=== PATIENT | female | born 1980 | race Caucasian/White ===

== ENCOUNTER → 2023-04-04 | Outpatient (CLI) | payer OTHER ==
[~2023-04-04] MED LIST: AMOCLA875 PO
[2023-04-04 15:42] LABS: Albumin, Blood 3.8 g/dL (3.4-5.0); Albumin/Globulin Ratio 1.1 (0.8-1.8); Bilirubin, Total 0.5 mg/dL (0.1-1.0); Bun/Creatinine Ratio 13.2 (12.0-20.0); Calcium, Blood 8.7 mg/dL (8.5-10.1); Creatinine, Blood 0.76 mg/dL (0.40-1.00); Free Thyroxine 0.87 ng/dL (0.70-1.60); Globulin, Blood 3.5 g/dL (2.2-4.0); Thyroid Stimulating Hormone 1.2 uIU/mL (0.360-4.800); Total Protein, Blood 7.3 g/dL (6.4-8.2)
== END | disposition home or self-care (01) ==
LOC: LAB 11:04 → LAB SHORT 11:04
PROVIDERS: Nurse Practitioner Family
DX: E78.5 Hyperlipidemia, unspecified (principal); L68.0 Hirsutism
CPT/HCPCS: 80053; 84439; 84443

== ENCOUNTER 2023-06-13 05:39 | Emergency (ER) | payer OTHER ==
[~2023-06-13] VITALS: Ht 162.6 cm; Wt 74.8 kg
[2023-06-13 06:23] LABS: BASOPHILS ABSOLUTE AUTO 0.04 K/mm3 (0.00-0.23); BASOPHILS PERCENT AUTO 1 % (0-2); EOSINOPHILS ABSOLUTE AUTO 0.09 K/mm3 (0.00-0.68); EOSINOPHILS PERCENT AUTO 1 % (0-6); Hematocrit 41.1 % (33.0-51.0); Hemoglobin 14.1 g/dL (11.5-16.0); IMMATURE GRAN ABSOLUTE AUTO 0.06 K/mm3 (0.00-0.10); IMMATURE GRAN PERCENT AUTO 1 % (0-1); LYMPHOCYTES ABSOLUTE AUTO 2.73 K/mm3 (0.84-5.20); LYMPHOCYTES PERCENT AUTO 32 % (21-46); MONOCYTES ABSOLUTE AUTO 0.56 K/mm3 (0.16-1.47); MONOCYTES PERCENT AUTO 7 % (4-13); Mean Corpuscular HGB 32.5 pg (26.0-34.0); Mean Corpuscular HGB Conc 34.3 g/dL (31.5-36.5); Mean Corpuscular Volume 95 fL (80-100); Mean Platelet Volume 9.3 fL (9.1-12.4); NEUTROPHILS ABSOLUTE AUTO 5.07 K/mm3 (1.96-9.15); NEUTROPHILS PERCENT AUTO 59 % (41-73); Platelet Count 327 K/mm3 (150-400); RDW Coefficient Variation 12.2 % (11.7-14.2); RDW Standard Deviation 42.4 fL (35.1-46.3); Red Blood Cell Count 4.34 M/mm3 (3.80-5.20); White Blood Cell Count 8.55 K/mm3 (4.00-11.30)
[2023-06-13 06:51] LABS: Albumin, Blood 3.7 g/dL (3.4-5.0); Bilirubin, Total 0.3 mg/dL (0.1-1.0); Calcium, Blood 8.7 mg/dL (8.5-10.1); Creatinine, Blood 0.69 mg/dL (0.40-1.00); Globulin, Blood 3.7 g/dL (2.2-4.0); Potassium, Blood 3.5 mmol/L (3.5-5.5); Total Protein, Blood 7.4 g/dL (6.4-8.2)
[2023-06-13 08:00] VITALS: BP 105/46
[2023-06-13] MEDS ORDERED: ATORVASTATIN CA20 MG PO (17:34)
[2023-06-13] MEDS ORDERED: OMEP20ER PO (17:34)
[2023-06-13] MEDS ORDERED: ZOLP5 PO (17:34)
[2023-06-14] MEDS ORDERED: Norco 5-325 Ta1 EACH PO (15:42)
== END 2023-06-13 08:44 | disposition home or self-care (01) ==
LOC: ER 05:39
PROVIDERS: Emergency Medicine
DX: K80.20 Calculus of gallbladder without cholecystitis without obstruction (principal); R11.2 Nausea with vomiting, unspecified
CPT/HCPCS: 71046; 76705; 80053; 81025; 83690; 84484; 85025; 93005; 93010; 99284-25; A9270

== ENCOUNTER 2023-06-13 12:55 | Observation (INO) | payer OTHER ==
[~2023-06-13] VITALS: Ht 170.2 cm; Wt 88.9 kg
[2023-06-13 13:35] LABS: BASOPHILS ABSOLUTE AUTO 0.02 K/mm3 (0.00-0.23); BASOPHILS PERCENT AUTO 0 % (0-2); EOSINOPHILS ABSOLUTE AUTO 0.02 K/mm3 (0.00-0.68); EOSINOPHILS PERCENT AUTO 0 % (0-6); Hematocrit 42.4 % (33.0-51.0); Hemoglobin 14.8 g/dL (11.5-16.0); IMMATURE GRAN ABSOLUTE AUTO 0.06 K/mm3 (0.00-0.10); IMMATURE GRAN PERCENT AUTO 1 % (0-1); LYMPHOCYTES PERCENT AUTO 25 % (21-46); MONOCYTES ABSOLUTE AUTO 0.77 K/mm3 (0.16-1.47); MONOCYTES PERCENT AUTO 7 % (4-13); Mean Corpuscular HGB 32.1 pg (26.0-34.0); Mean Corpuscular HGB Conc 34.9 g/dL (31.5-36.5); Mean Corpuscular Volume 92 fL (80-100); Mean Platelet Volume 9.1 fL (9.1-12.4); NEUTROPHILS ABSOLUTE AUTO 7.36 K/mm3 (1.96-9.15); NEUTROPHILS PERCENT AUTO 67 % (41-73); Platelet Count 377 K/mm3 (150-400); RDW Coefficient Variation 12.3 % (11.7-14.2); RDW Standard Deviation 41.4 fL (35.1-46.3); Red Blood Cell Count 4.61 M/mm3 (3.80-5.20); White Blood Cell Count 11.03 K/mm3 (4.00-11.30)
[2023-06-13 13:53] LABS: Albumin, Blood 4.1 g/dL (3.4-5.0); Albumin/Globulin Ratio 1.1 (0.8-1.8); Bilirubin, Total 0.7 mg/dL (0.1-1.0); Bun/Creatinine Ratio 12.2 (12.0-20.0); Creatinine, Blood 0.57 mg/dL (0.40-1.00); Globulin, Blood 3.8 g/dL (2.2-4.0); Potassium, Blood 3.7 mmol/L (3.5-5.5); Total Protein, Blood 7.9 g/dL (6.4-8.2)
[2023-06-13] MEDS ORDERED: OMEP20ER PO (17:34)
[2023-06-13] MEDS ORDERED: ATORVASTATIN CA20 MG PO (17:34)
[2023-06-13] MEDS ORDERED: ZOLP5 PO (17:34)
[2023-06-13 21:21] VITALS: BP 109/61
[2023-06-14] VITALS (20 sets, daily range): BP systolic 95–125; BP diastolic 49–84
--- NOTE | 2023-06-14 05:39 | NUR ---
SHIFT SUMMARY PT ADMIT FOR GALLSTONE, NPO @UT. PT DENIES PAIN AND REPORTS WELL CONTROLLED BY TORADOL ADMINISTERED IN ER. PT A&OX4, INDEPENDANT IN ROOM. IV FLUIDS INFUSING TO R AC. NO ACUTE CHANGES, CALL LIGHT W/IN REACH. WILL REPORT TO ONCOMING STAFF.
--- NOTE | 2023-06-14 07:30 | NUR ---
PT TO OR VIA [facility]
--- NOTE | 2023-06-14 07:49 | NUR ---
PT HAS 20G IV TO RIGHT AC THAT FLUSHES WELL AND FLOWS TO GRAVITY.
--- NOTE | 2023-06-14 10:33 | NUR ---
POST OP ARRIVAL STANDS TO TRANSFERS TO BED. ASSESSMENT CHARTED. DROWSY BUT AWAKENS APPROP. STATES SHE FEELS BETTER. SIPS OF CLEARS GIVEN & ALLOWED TO REST. FAMILY AT SIDE.
[2023-06-14] MEDS ORDERED: Norco 5-325 Ta1 EACH PO (15:42)
--- NOTE | 2023-06-14 16:03 | NUR ---
DISCHARGE TOLERATING DIET. REPORTS PAIN IS TOLERABLE. VOIDING. MOVING AROUND EASILY. DR CRAIG INTO SEE PT. PT EXCITED FOR DC HOME. ESCORTED OUT VIA WC.
== END 2023-06-14 16:03 | disposition home or self-care (01) ==
LOC: ER 12:55 → SURS 12:56
PROVIDERS: Emergency Medicine; ADMIT Surgery
PROC: 0FT44ZZ Resection of Gallbladder, Percutaneous Endoscopic Approach (ICD-10-PCS; principal; 2023-06-13)
DX: K80.12 Calculus of gallbladder with acute and chronic cholecystitis without obstruction (principal); K21.9 Gastro-esophageal reflux disease without esophagitis; E78.5 Hyperlipidemia, unspecified
CPT/HCPCS: 74300; 76705; 80053; 83690; 85025; 88304; 96365; 96375; 99285-25; A9270; C1894; G0378; J0295; J1100; J1885; J2250; J2371; J2405; J2704; J2765; J3010; J7120